=== PATIENT | female | born 1945 | race Two or more races ===

== ENCOUNTER 2019-05-10 09:22 | Inpatient (IN) | payer MEDICARE, MEDICAID ==
[~2019-05-10] VITALS: Ht 147.3 cm; Wt 46.2 kg
[~2019-05-10 09:22] MED LIST: ATOR10TA9 PO; ATOR20TA37 PO; BISA10SU4 PR; DOCU100C33 PO; LISI1TAB23 PO; MULT-6 PO; ONDA4TAB13 PO; POLY17PO5 PO
[2019-05-10 10:26] LABS: ALBUMIN 2.8 g/dL (3.4-5.0); ANION GAP 6 mmol/L (5-15); CALCIUM 7.9 mg/dL (8.5-10.1); CHLORIDE 111 mmol/L (98-107)
[2019-05-10 10:30] LABS: BASOPHILS # (AUTO) 0.03 x10^3/uL (0-0.1); BASOPHILS % (AUTO) 0 % (0-1); EOSINOPHILS # (AUTO) 0.06 x10^3/uL (0-0.4); EOSINOPHILS % (AUTO) 1 % (1-7); LYMPHOCYTES # (AUTO) 1.19 x10^3/uL (1-3.4); LYMPHOCYTES % (AUTO) 11 % (22-44); MD NO; MEAN CORPUSCULAR HGB CONC 32.9 g/dL (32.4-35.8); MEAN CORPUSCULAR VOLUME 97.3 fL (80-100); MEAN PLATELET VOLUME 7.8 fL (7.4-10.4); MONOCYTES # (AUTO) 0.43 x10^3/uL (0.2-0.8); MONOCYTES % (AUTO) 4 % (2-9); NEUTROPHILS % (AUTO) 85 % (42-75); PLATELET COUNT 296 x10^3/uL (130-400); RED BLOOD COUNT 4.03 x10^6/uL (3.82-5.3); RED CELL DISTRIBUTION WIDTH 14.3 % (9.6-15.2)
[2019-05-10] MEDS ORDERED: MORPHINE SULFATE 4 MG/ML, 1ML IVPush ONE (11:00)
[2019-05-10] MEDS ORDERED: HEPARIN 1,000 UNITS/ML, 10ML ONE (11:10)
[2019-05-10] MEDS ORDERED: LIDOCAINE 2%, 20ML ONE (11:10)
[2019-05-10] MEDS ORDERED: MIDAZOLAM 1 MG/ML, 5ML ONE (11:10)
[2019-05-10] MEDS ORDERED: BIVALIRUDIN 250 MG ONE (11:10)
[2019-05-10] MEDS ORDERED: TICAGRELOR 90 MG TABLET ONE (11:10)
[2019-05-10] MEDS ORDERED: FENTANYL PF 100 MCG/2ML ONE (11:10)
[2019-05-10] MEDS ORDERED: VERAPAMIL 2.5 MG/ML, 2ML ONE (11:10)
[2019-05-10] MEDS ORDERED: MORPHINE SULFATE 4 MG/ML, 1ML ONE (11:28)
[2019-05-10] MEDS ORDERED: MAGNESIUM SULFATE PMX 2GM/50ML 50 ML IV ONE (12:30)
[2019-05-10] MEDS: POTASSIUM CHLORIDE 20 MEQ TAB.ER.PRT PO SCH ×3 (12:30→21:00)
[2019-05-10] MEDS ORDERED: FUROSEMIDE 20 MG/2 ML IV ONE (12:30)
[2019-05-10] MEDS ORDERED: ACETAMINOPHEN 325 MG TABLET PO PRN (13:00)
[2019-05-10] MEDS: FUROSEMIDE 20 MG/2 ML IV SCH (18:29)
[2019-05-10] MEDS ORDERED: ACETAMINOPHEN 325 MG SUPP PR PRN (20:00)
[2019-05-10] MEDS ORDERED: LORazepam 2 MG/ML, 1ML IVPush PRN (20:00)
[2019-05-10] MEDS ORDERED: POTASSIUM CHLORIDE 40 MEQ in SODIUM CHLORIDE 0.9% 500 ML IV ONE (20:00)
[2019-05-10] MEDS ORDERED: LORazepam 2 MG/ML, 1ML ONE (20:00)
[2019-05-10] MEDS ORDERED: ACETAMINOPHEN 650 MG SUPP ONE (20:01)
[2019-05-10] MEDS ORDERED: ACETAMINOPHEN 650 MG SUPP PR PRN (20:30)
[2019-05-11 04:30] VITALS: BP 105/55
[2019-05-11 05:48] LABS: ANION GAP 5 mmol/L (5-15); CALCIUM 7.4 mg/dL (8.5-10.1); CHLORIDE 115 mmol/L (98-107); CREATININE 0.88 mg/dL (0.55-1.02)
[2019-05-11] MEDS: FUROSEMIDE 20 MG/2 ML IV SCH (06:01)
[2019-05-11] MEDS: POTASSIUM CHLORIDE 20 MEQ TAB.ER.PRT PO SCH (09:00)
[2019-05-11] MEDS: ASPIRIN 81 MG TABLET EC PO SCH (09:00)
[2019-05-11] MEDS: SPIRONOLACTONE 25 MG TABLET PO SCH (11:30)
[2019-05-12] MEDS ORDERED: LORazepam 2 MG/ML, 1ML ONE (01:08)
[2019-05-12] MEDS ORDERED: LORazepam 2 MG/ML, 1ML IVPush PRN (01:30)
[2019-05-12 04:00] VITALS: BP 102/52
[2019-05-12 05:30] LABS: BASOPHILS # (AUTO) 0.01 x10^3/uL (0-0.1); BASOPHILS % (AUTO) 0 % (0-1); EOSINOPHILS # (AUTO) 0.02 x10^3/uL (0-0.4); EOSINOPHILS % (AUTO) 0 % (1-7); LYMPHOCYTES # (AUTO) 1.39 x10^3/uL (1-3.4); LYMPHOCYTES % (AUTO) 14 % (22-44); MD NO; MEAN CORPUSCULAR HEMOGLOBIN 31.8 pg (27.0-34.8); MEAN CORPUSCULAR HGB CONC 32.5 g/dL (32.4-35.8); MEAN CORPUSCULAR VOLUME 98.1 fL (80-100); MEAN PLATELET VOLUME 7.8 fL (7.4-10.4); MONOCYTES # (AUTO) 0.53 x10^3/uL (0.2-0.8); MONOCYTES % (AUTO) 5 % (2-9); NEUTROPHILS # (AUTO) 8.01 x10^3/uL (1.8-6.8); NEUTROPHILS % (AUTO) 81 % (42-75); PLATELET COUNT 223 x10^3/uL (130-400); RED BLOOD COUNT 3.15 x10^6/uL (3.82-5.3); RED CELL DISTRIBUTION WIDTH 14.4 % (9.6-15.2)
[2019-05-12 05:36] LABS: ALBUMIN 2.2 g/dL (3.4-5.0); ANION GAP 5 mmol/L (5-15); CALCIUM 7.7 mg/dL (8.5-10.1); CHLORIDE 115 mmol/L (98-107)
[2019-05-12 05:39] LABS: ALANINE AMINOTRANSFERASE 39 U/L (12-78); CHOLESTEROL, TOTAL 151 mg/dL (140-239); CREATININE 0.84 mg/dL (0.55-1.02); TRIGLYCERIDES 102 mg/dL (50-200); VLDL CHOLESTEROL 20 mg/dL (0-25)
[2019-05-12 05:41] LABS: ALKALINE PHOSPHATASE 77 U/L (45-117); BILIRUBIN,TOTAL 0.4 mg/dL (0.2-1.0); CHOL/HDL RATIO 2.8; HDL CHOL % 36 % (28-40); HDL CHOLESTEROL (DIRECT) 54 mg/dL (40-60); LDL CHOLESTEROL,CALCULATED 77 mg/dL (54-169); LDL/HDL RATIO 1.4 (0.5-3.0); TOTAL PROTEIN 6.5 g/dL (6.4-8.2)
[2019-05-12] MEDS ORDERED: FUROSEMIDE 20 MG/2 ML IV ONE (09:30)
[2019-05-12] MEDS: POTASSIUM CHLORIDE 20 MEQ TAB.ER.PRT PO SCH (11:55)
[2019-05-12] MEDS: SPIRONOLACTONE 25 MG TABLET PO SCH (11:56)
[2019-05-12] MEDS: ASPIRIN 81 MG TABLET EC PO SCH (11:56)
[2019-05-12] MEDS: ATORVASTATIN 40 MG TABLET PO SCH (20:00)
[2019-05-13 01:02] VITALS: BP 125/85
[2019-05-13 06:13] LABS: ANION GAP 6 mmol/L (5-15); CHLORIDE 117 mmol/L (98-107); CREATININE 1.06 mg/dL (0.55-1.02)
[2019-05-13 06:36] VITALS: BP 133/83
[2019-05-13] MEDS: SPIRONOLACTONE 25 MG TABLET PO SCH (10:05)
[2019-05-13] MEDS: ASPIRIN 81 MG TABLET EC PO SCH (10:05)
[2019-05-13] MEDS: LOSARTAN 25MG TABLET PO SCH (10:05)
[2019-05-13] MEDS: POTASSIUM CHLORIDE 20 MEQ TAB.ER.PRT PO SCH (10:05)
[2019-05-13] MEDS: SODIUM CHLORIDE 0.9% 1,000 ML IV SCH (10:06)
[2019-05-13 12:45] VITALS: BP 120/72
[2019-05-13 20:36] VITALS: BP 120/74
[2019-05-13] MEDS: ATORVASTATIN 40 MG TABLET PO SCH (20:46)
[2019-05-13] MEDS: METOPROLOL SUCCINATE 25 MG TAB.ER.24H PO SCH (20:47)
[2019-05-14] MEDS: SODIUM CHLORIDE 0.9% 1,000 ML IV SCH (00:23)
[2019-05-14 01:22] VITALS: BP 109/67
[2019-05-14 05:47] LABS: BASOPHILS # (AUTO) 0.03 x10^3/uL (0-0.1); BASOPHILS % (AUTO) 0 % (0-1); EOSINOPHILS # (AUTO) 0.46 x10^3/uL (0-0.4); EOSINOPHILS % (AUTO) 5 % (1-7); LYMPHOCYTES # (AUTO) 2.07 x10^3/uL (1-3.4); LYMPHOCYTES % (AUTO) 24 % (22-44); MD NO; MEAN CORPUSCULAR HEMOGLOBIN 32.1 pg (27.0-34.8); MEAN CORPUSCULAR HGB CONC 32.4 g/dL (32.4-35.8); MEAN PLATELET VOLUME 7.8 fL (7.4-10.4); MONOCYTES # (AUTO) 0.47 x10^3/uL (0.2-0.8); MONOCYTES % (AUTO) 6 % (2-9); NEUTROPHILS # (AUTO) 5.62 x10^3/uL (1.8-6.8); NEUTROPHILS % (AUTO) 65 % (42-75); PLATELET COUNT 309 x10^3/uL (130-400); RED BLOOD COUNT 3.22 x10^6/uL (3.82-5.3); RED CELL DISTRIBUTION WIDTH 14.6 % (9.6-15.2)
[2019-05-14 05:54] LABS: CHLORIDE 119 mmol/L (98-107)
[2019-05-14 05:59] LABS: ANION GAP 7 mmol/L (5-15); CALCIUM 7.6 mg/dL (8.5-10.1); CREATININE 0.99 mg/dL (0.55-1.02)
[2019-05-14 07:01] VITALS: BP 114/74
[2019-05-14] MEDS: SPIRONOLACTONE 25 MG TABLET PO SCH (09:27)
[2019-05-14] MEDS: ASPIRIN 81 MG TABLET EC PO SCH (09:27)
[2019-05-14] MEDS: LOSARTAN 25MG TABLET PO SCH (09:27)
[2019-05-14] MEDS: POTASSIUM CHLORIDE 20 MEQ TAB.ER.PRT PO SCH (09:27)
[2019-05-14 13:37] VITALS: BP 113/74
[2019-05-14] MEDS: CLOPIDOGREL 75 MG TABLET PO SCH (14:33)
[2019-05-14 20:27] VITALS: BP 116/76
[2019-05-14] MEDS: ATORVASTATIN 40 MG TABLET PO SCH (21:21)
[2019-05-14] MEDS: METOPROLOL SUCCINATE 25 MG TAB.ER.24H PO SCH (21:22)
[2019-05-15 00:12] VITALS: BP 117/73
[2019-05-15 05:38] LABS: BASOPHILS # (AUTO) 0.03 x10^3/uL (0-0.1); BASOPHILS % (AUTO) 1 % (0-1); EOSINOPHILS # (AUTO) 0.57 x10^3/uL (0-0.4); EOSINOPHILS % (AUTO) 8 % (1-7); LYMPHOCYTES % (AUTO) 31 % (22-44); MD NO; MEAN CORPUSCULAR HEMOGLOBIN 31.5 pg (27.0-34.8); MEAN CORPUSCULAR HGB CONC 32.2 g/dL (32.4-35.8); MEAN CORPUSCULAR VOLUME 97.8 fL (80-100); MEAN PLATELET VOLUME 8.1 fL (7.4-10.4); MONOCYTES # (AUTO) 0.47 x10^3/uL (0.2-0.8); MONOCYTES % (AUTO) 7 % (2-9); NEUTROPHILS # (AUTO) 3.86 x10^3/uL (1.8-6.8); NEUTROPHILS % (AUTO) 54 % (42-75); PLATELET COUNT 323 x10^3/uL (130-400); RED BLOOD COUNT 3.27 x10^6/uL (3.82-5.3); RED CELL DISTRIBUTION WIDTH 14.2 % (9.6-15.2)
[2019-05-15 05:49] LABS: ANION GAP 7 mmol/L (5-15); CHLORIDE 120 mmol/L (98-107)
[2019-05-15 05:51] LABS: CREATININE 0.86 mg/dL (0.55-1.02)
[2019-05-15 06:42] VITALS: BP 118/68
--- NOTE | 2019-05-15 10:10 | NUR ---
DC home with family and 24 hour assist Addendum: 05/15/19 at 1010 by Gilberto Erickson PT Amended: Links added.
[2019-05-15 10:32] VITALS: BP 108/68
[2019-05-15] MEDS: SPIRONOLACTONE 25 MG TABLET PO SCH (10:33)
[2019-05-15] MEDS: ASPIRIN 81 MG TABLET EC PO SCH (10:34)
[2019-05-15] MEDS: CLOPIDOGREL 75 MG TABLET PO SCH (10:34)
[2019-05-15] MEDS: LOSARTAN 25MG TABLET PO SCH (10:34)
[2019-05-15] MEDS: POTASSIUM CHLORIDE 20 MEQ TAB.ER.PRT PO SCH (10:34)
[2019-05-15 13:17] VITALS: BP 103/64
[2019-05-15] MEDS ORDERED: CLOP75TA PO (16:29)
[2019-05-15] MEDS ORDERED: LOSA25TA25 PO (16:29)
[2019-05-15] MEDS ORDERED: METO25TA91 PO (16:29)
[2019-05-15] MEDS ORDERED: ATOR40TA78 PO (16:29)
[2019-05-15] MEDS ORDERED: ASPI81TA45 PO (16:29)
[2019-05-15] MEDS ORDERED: SPIR25TA PO (16:29)
== END 2019-05-15 19:36 | disposition home or self-care (01) | DRG 250 ==
LOC: ED 09:52 → EDIP 11:08 → ICU 13:14 → 5SO 05-12 22:45
PROVIDERS: ADMIT Internal Medicine Cardiovascular Disease; ATTEND Internal Medicine Infectious Disease
PROC: 02703ZZ Dilation of Coronary Artery, One Artery, Percutaneous Approach (ICD-10-PCS; principal; 2019-05-10)
PROC: 4A023N7 Measurement of Cardiac Sampling and Pressure, Left Heart, Percutaneous Approach (ICD-10-PCS; 2019-05-10)
PROC: B2111ZZ Fluoroscopy of Multiple Coronary Arteries using Low Osmolar Contrast (ICD-10-PCS; 2019-05-10)
PROC: 0T9B70Z Drainage of Bladder with Drainage Device, Via Natural or Artificial Opening (ICD-10-PCS; 2019-05-10)
PROC: 5A09357 Assistance with Respiratory Ventilation, Less than 24 Consecutive Hours, Continuous Positive Airway Pressure (ICD-10-PCS; 2019-05-11)
DX: I21.3 ST elevation (STEMI) myocardial infarction of unspecified site (principal); I50.23 Acute on chronic systolic (congestive) heart failure; J96.00 Acute respiratory failure, unspecified whether with hypoxia or hypercapnia; R47.01 Aphasia; E87.0 Hyperosmolality and hypernatremia; S37.99XA Other injury of unspecified urinary and pelvic organ, initial encounter; I25.10 Atherosclerotic heart disease of native coronary artery without angina pectoris; R31.0 Gross hematuria; E78.5 Hyperlipidemia, unspecified; E87.6 Hypokalemia; Z86.73 Personal history of transient ischemic attack (TIA), and cerebral infarction without residual deficits; Z03.818 Encounter for observation for suspected exposure to other biological agents ruled out
CPT/HCPCS: 36415; 36600; 71045; 80047; 80048; 80053; 80061; 82040; 82803; 83721; 83735; 84484; 85025; 87081; 93005; 94660; 96374; 96375; 99285; G0378; J0583; J1644; J2250; J3010; J3480; J1940; J2060; J2270; J3475; J7030; J7040